=== PATIENT | female | born 1960 | race Caucasian/White ===

== ENCOUNTER 2017-04-21 12:13 | Outpatient (CLI) | payer OTHER ==
[2017-04-21 13:22] LABS: INR 2.8 (0.8-1.2); PT - PROTHROMBIN TIME 30.4 secs (9.9-12.6)
== END 2017-04-21 12:14 | disposition home or self-care (01) ==
LOC: LAB 12:13
PROVIDERS: ATTEND Internal Medicine
DX: Z95.2 Presence of prosthetic heart valve (principal)
CPT/HCPCS: 36415; 85610

== ENCOUNTER 2017-11-10 13:04 | Outpatient (CLI) | payer OTHER ==
[2017-11-10 13:25] LABS: PT - PROTHROMBIN TIME 93.1 secs (9.9-12.6)
[2017-11-10 13:29] LABS: CALCIUM 8.9 mg/dL (8.5-10.3); CREATININE 0.9 mg/dL (0.4-1.0)
== END 2017-11-10 13:05 | disposition home or self-care (01) ==
LOC: LAB 13:04
PROVIDERS: ATTEND Internal Medicine Cardiovascular Disease
DX: Q23.0 Congenital stenosis of aortic valve (principal); I25.5 Ischemic cardiomyopathy; Z95.2 Presence of prosthetic heart valve
CPT/HCPCS: 36415; 80048; 85610

== ENCOUNTER 2017-11-28 10:02 | Outpatient (CLI) | payer OTHER ==
--- NOTE | 2017-12-01 13:06 | Mammography Report ---
Reason: SCREENING MAMMO Procedure Date: 11/28/2017 Accession Number: [id number] / [id number] Procedure: ALIA - Screening Mammo Dig Bilat CPT Code: FULL RESULT: EXAM: Screening Mammo Dig Bilat DATE: 11/28/2017 10:29 AM CLINICAL HISTORY: Routine screening TECHNIQUE: Bilateral CC and MLO views were obtained. COMPARISON: 05/08/2016, 12/24/2013, 10/19/2008 FINDINGS: There are scattered fibroglandular densities. There is no significant interval change. No suspicious masses, clustered microcalcifications, or regions of architectural distortion are identified. Right pacemaker as before. IMPRESSION: Negative examination RECOMMENDATION: Routine annual screening unless otherwise clinically indicated. BIRADS CATEGORY 1: Negative STANDARD QUALIFYING STATEMENTS: 1. This examination was reviewed with the aid of Computer-Aided Detection (CAD). 2. A negative or benign imaging report should not delay biopsy if clinically suspicious findings are present. Consider surgical consultation if warrented. More than 5% of cancers are not identified by imaging. 3. Dense breasts may obscure an underlying neoplasm.
== END 2017-11-28 10:03 | disposition home or self-care (01) ==
LOC: DI 10:02
PROVIDERS: ATTEND Internal Medicine
DX: Z12.31 Encounter for screening mammogram for malignant neoplasm of breast (principal)
CPT/HCPCS: 77067

== ENCOUNTER 2018-12-11 11:42 | Outpatient (CLI) | payer OTHER ==
--- NOTE | 2018-12-11 13:18 | Ultrasound Report ---
Reason: SOFT TISSUE MASS Procedure Date: 12/11/2018 Accession Number: [id number] / [id number] Procedure: US - Abdomen Limited CPT Code: Final Report FULL RESULT: EXAM: ABDOMEN ULTRASOUND LIMITED, RUQ EXAM DATE: 12/11/2018 12:45 PM. CLINICAL HISTORY: Soft tissue mass. COMPARISON: None. TECHNIQUE: Real-time scanning was performed with static images obtained. FINDINGS: Imaging performed at the site of the patient's palpable lump, reportedly at the site of a surgical scar. Corresponding to the site of the patient's lump there is is a fat-containing ventral hernia with herniated contents measuring up to 3.5 cm. The visible neck measures 2.3 cm. It reportedly is partially reducible. No definite herniated bowel. No fluid or fluid collections. IMPRESSION: Fat-containing ventral hernia at the site of the patient's lump. RADIA
== END 2018-12-11 11:43 | disposition home or self-care (01) ==
LOC: DI 11:42
PROVIDERS: ATTEND Physician Assistant
DX: K43.9 Ventral hernia without obstruction or gangrene (principal)
CPT/HCPCS: 76705

== ENCOUNTER 2019-03-29 06:04 | Day surgery (SDC) | payer OTHER ==
--- NOTE | 2019-03-25 15:17 | CONSULTATION NOTE ---
Consultation Report: This patient is schedule for a incisional ventral hernia repair on the 03/29/19. She has some significant cardiac history. Hx of CABG, aortic valve replacement with a prosthetic valve, inferior PA, ischemic cardiomyopathy, CHF, CAD and she has a pacemaker in place. I have read the health records of this patient. I have read her cardiology reports and the reports from her PCP. I have not personally seen the patient. Looking at Dr Chavez's notes, it appears that this patient can walk a few blocks. She can do stairs but gets winded. She has had no c/o chest pain, syncope, or lower extremity edema.Her most recent ECHO that was done on 03/05/2018 shows global hypokinesis of the left ventricle with EF of 46%. This echo shows well seated and well functioning aortic valve. She also appears to be 100% paced by her implanted pacemaker. A myocardial perfusion study from 2018 does show RCA infarct without any du-infarct Ischemic changes(RCA fills with collateral blood flow). She is on a betablocker, coumadin, lasix, losartan and few other medications.
[2019-03-29] MEDS ORDERED: CEFAZOLIN SODIUM IN 0.9 % NACL 2 GM/100 ML BAG IV ONE (06:21)
[2019-03-29] MEDS ORDERED: LIDOCAINE 1%-EPI 1:100000 20 ML MDV ONE (06:52)
[2019-03-29] MEDS ORDERED: BUPIVACAINE 0.5% PF 30 ML VIAL ONE (06:52)
[2019-03-29] MEDS ORDERED: LACTATED RINGERS 1,000 ML IV ONE (06:56)
--- NOTE | 2019-03-29 07:09 | ANESTHESIA ---
Pre-Anesthesia VS, & Labs - Diagnosis Epigastric incisional hernia - Procedure epigastric incisional hernia repair Vital Signs: Temp Pulse Resp BP Pulse Ox 36.7 C 51 L 16 98/73 98 03/29/19 06:38 03/29/19 06:38 03/29/19 06:38 03/29/19 06:38 03/29/19 06:38 Height 5 ft 2 in Weight (kg) 75 kg - NPO >8 hours - Is Patient ?: No Home Medications and Allergies Home Medications: Ambulatory Orders Estradiol [Estrace] 1 applic VG DAILY 03/24/19 Furosemide 40 mg PO DAILY 03/24/19 Losartan Potassium 50 mg PO DAILY 03/24/19 Metoprolol Succinate 25 mg PO DAILY 03/24/19 Sertraline HCl 50 mg PO DAILY 03/24/19 Warfarin Sodium 10 mg PO DAILY 03/24/19 Enoxaparin [Lovenox] 1 BID 03/29/19 Spironolactone 1 DAILY 03/29/19 Estradiol [Estrace] 1 applic VG DAILY 03/24/19 Furosemide 40 mg PO DAILY 03/24/19 Losartan Potassium 50 mg PO DAILY 03/24/19 Metoprolol Succinate 25 mg PO DAILY 03/24/19 Sertraline HCl 50 mg PO DAILY 03/24/19 Warfarin Sodium 10 mg PO DAILY 03/24/19 Enoxaparin [Lovenox] 1 BID 03/29/19 Spironolactone 1 DAILY 03/29/19 Allergies/Adverse Reactions: Allergies Allergy/AdvReac Type Severity Reaction Status Date / Time oxycodone [From Percocet] AdvReac body Verified 03/29/19 06:45 twitching/ jumping Anes History & Medical History - Medical History Cardiovascular: reports: [place] (s/p CABG), Valve disorder Pulmonary: reports: None Gastrointestinal: reports: None Urinary: reports: None Neuro: reports: None Musculoskeletal: reports: None Endocrine/Autoimmune: reports: None Blood Disorders: reports: None Skin: reports: None Smoking Status: Never smoker Psychosocial: reports: Alcohol (2-3 glasses of wine per day) - Surgical History Cardiothoracic: CABG, Valve replacement, Pacemaker Results - EKG Results EKG Comparison: Reviewed EKG - Echo Results Echo Results: Report reviewed Exam General: Alert, Oriented x3, Cooperative, No acute distress Dental: WNL Mouth Openin Fingerbreadth Neck Mobility: Normal Mallampati classification: II Thyromental Distance: greater than 6 cm Respiratory: Lungs clear, Normal breath sounds, No respiratory distress, No accessory muscle use Cardiovascular: Regular rate, Other (loud click) Mental/Cognitive Status: Alert/Oriented X3, Normal for patient Plan Anesthesia Type: General Consent for Procedure(s) Verified and Reviewed: Yes Code Status: Attempt Resuscitation ASA classification: 3-Severe systemic disease Is this case an emergency?: No
[2019-03-29 07:50] LABS: CALCIUM 8.5 mg/dL (8.5-10.3)
[2019-03-29 08:29] LABS: INR 1.1 (0.8-1.2)
[2019-03-29] MEDS ORDERED: ONDANSETRON 4 MG/2 ML VIAL IVP ONE (08:38)
[2019-03-29] MEDS ORDERED: PHENYLEPHRINE 50 MG/5 ML VIAL IV ONE (08:38)
[2019-03-29] MEDS ORDERED: ePHEDrine 50 MG/ML VIAL IVP ONE (08:38)
[2019-03-29] MEDS ORDERED: MIDAZOLAM 2 MG/2 ML VIAL IVP ONE (08:38)
[2019-03-29] MEDS ORDERED: LIDOCAINE-MPF 2% 5 ML VIAL IM ONE (08:38)
[2019-03-29] MEDS ORDERED: DEXAMETHASONE 4 MG/ML VIAL IVP ONE (08:38)
[2019-03-29] MEDS ORDERED: fentaNYL 100 MCG/2 ML VIAL IVP ONE (08:38)
[2019-03-29] MEDS ORDERED: PROPOFOL 200 MG/20 ML VIAL IVP ONE (08:38)
[2019-03-29] MEDS ORDERED: BUPIVACAINE 0.5% PF 30 ML VIAL INFIL ONE ×2 (09:10)
[2019-03-29] MEDS ORDERED: LIDOCAINE 1%-EPI 1:100000 20 ML MDV SUBQ ONE ×2 (09:10)
[2019-03-29] MEDS ORDERED: ACETAMINOPHEN 325 MG TABLET PO PRN (09:24)
[2019-03-29] MEDS ORDERED: IBUPROFEN 600 MG TABLET PO PRN (09:24)
[2019-03-29] MEDS ORDERED: ONDANSETRON 4 MG/2 ML VIAL IVP PRN (09:24)
[2019-03-29] MEDS ORDERED: HYDROcod/ACETAM 5/325 MG TABLET PO PRN (09:26)
[2019-03-29] MEDS ORDERED: LACTATED RINGERS 500 ML IV ONE (09:55)
[2019-03-29 11:13] VITALS: BP 88/51
--- NOTE | 2019-03-29 11:55 | OPERATIVE REPORT ---
Operative Report - General Procedure Date: 03/29/19 Planned Procedure: Incisional Hernia Repair Pre-Op Diagnosis: Epigastric Incisional Hernia Procedure Performed: Incisional hernia repair Post Op Diagnosis: Epigastric Incisional Hernia - Procedure Note Primary Surgeon: Dennis Anesthesia Provider: RUSTY Tanner Anesthesia Technique: General LMA, Local Estimated Blood Loss (mL): 5 Findings: 4 cm epigastric incisional hernia Complications: None apparent - Other Other Information/Narrative: After obtaining informed consent, the patient is brought to the operating room and placed in the supine position on the operating table. Following successful induction of general anesthesia, appropriate padding of all bony prominences, and placement of appropriate monitors the abdomen was prepped and draped in the standard surgical fashion. A timeout was held per scope protocol. All elements of the surgical safety checklist were followed before, during, and after the procedure. We began the procedure by infiltrating a mixture of local anesthetics inferior to the xiphoid process at the site of the hernia. The existing well-healed incision was then reopened in this area and carried down through the skin and subcutaneous tissue to reveal a well-defined hernia defect of approximately 4 cm.Fascia were carefully dissected free from the underlying hernia sac and the hernia sac itself placed back into the abdominal cavity. The hernia sac contained preperitoneal fat and peritoneum only. The wound was then checked for hemostasis. We elected to repair the defect using a 6 cm ventral Micah patch. This was dipped in Ancef containing solution and deployed into the defect per fender mechanic apprentice's directions. The anterior leaflets were then trimmed and sewn to the fascia again per fender mechanic apprentice's directions. The superior portion of the anterior surface of the patch was then tacked to the xiphoid process to prevent shifting during the initial stages of healing. The wound was checked for hemostasis and irrigated with warm saline solution containing Ancef. It was then closed in 2 layers with Vicryl and Monocryl suture and Dermabond applied to the skin. All sponge, needle, and instrument counts were correct at the conclusion of the case. The patient was allowed awaken from anesthesia without difficulty and taken to the postanesthesia care unit in good condition.
== END 2019-03-29 06:05 | disposition home or self-care (01) ==
LOC: SDS 06:04
PROVIDERS: ATTEND Surgery
PROC: 0WUF0JZ Supplement Abdominal Wall with Synthetic Substitute, Open Approach (ICD-10-PCS; principal; 2019-03-29 07:30)
DX: K43.2 Incisional hernia without obstruction or gangrene (principal); I50.9 Heart failure, unspecified; I49.9 Cardiac arrhythmia, unspecified; G40.909 Epilepsy, unspecified, not intractable, without status epilepticus; Z79.01 Long term (current) use of anticoagulants; I25.2 Old myocardial infarction; Z95.1 Presence of aortocoronary bypass graft; Z95.2 Presence of prosthetic heart valve; Z95.0 Presence of cardiac pacemaker
CPT/HCPCS: 36415; 49560; 49568; 80048; 85610; A9270; C1781; J0690; J7120

== ENCOUNTER 2020-06-23 12:01 | Outpatient (CLI) | payer OTHER ==
[2020-06-23 12:33] LABS: CALCIUM 9.2 mg/dL (8.5-10.3); CREATININE 0.9 mg/dL (0.4-1.0); POTASSIUM 4.1 mmol/L (3.5-5.0)
== END 2020-06-23 12:02 | disposition home or self-care (01) ==
LOC: LAB 12:01
PROVIDERS: ATTEND Internal Medicine
DX: Q23.0 Congenital stenosis of aortic valve (principal); I25.5 Ischemic cardiomyopathy; Z79.01 Long term (current) use of anticoagulants; I50.9 Heart failure, unspecified
CPT/HCPCS: 36415; 80048; 85610

== ENCOUNTER 2020-07-03 13:22 | Outpatient (CLI) | payer OTHER | END 2020-07-03 13:23 | disposition home or self-care (01) | LOC: LAB 13:22 | PROVIDERS: ATTEND Internal Medicine | DX: Z79.01 Long term (current) use of anticoagulants (principal); I50.9 Heart failure, unspecified | CPT/HCPCS: 36416; 85610 ==

== ENCOUNTER 2020-11-27 12:52 | Outpatient (CLI) | payer OTHER ==
--- NOTE | 2020-11-27 13:48 | XRAY Report ---
PROCEDURE: Chest 2 View X-Ray INDICATIONS: DIAPHRAGMATIC HERNIA,OTHER FORMS OF DYSPNEA,DYSPHA TECHNIQUE: 2 view(s) of the chest. COMPARISON: None. FINDINGS: Surgical changes and devices: Right chest wall pacemaker leads are in the region of right atrium and right ventricle. Mediastinal anatomy wires and prosthetic heart valve are seen. Lungs and pleura: No pleural effusions or pneumothorax. Lungs are clear. Mediastinum: Mediastinal contours are normal. Heart size is markedly enlarged Bones and chest wall: No suspicious bony abnormalities. Soft tissues appear unremarkable. IMPRESSION: No acute cardiopulmonary pathology. Reviewed by: Bolivar Nolen MD on 11/27/2020 1:47 PM PDT Approved by: Bolivar Nolen MD on 11/27/2020 1:47 PM PDT Station ID: [id number]
== END 2020-11-27 12:53 | disposition home or self-care (01) ==
LOC: DI 12:52
DX: K44.9 Diaphragmatic hernia without obstruction or gangrene (principal); R06.09 Other forms of dyspnea; R13.10 Dysphagia, unspecified; Q23.0 Congenital stenosis of aortic valve
CPT/HCPCS: 36415; 80069

== ENCOUNTER 2020-11-27 13:10 | Outpatient (CLI) | payer OTHER ==
[2020-11-27 13:49] LABS: ALBUMIN 4.5 g/dL (3.2-5.5); CALCIUM 8.9 mg/dL (8.5-10.3); CREATININE 1.2 mg/dL (0.4-1.0); PHOSPHORUS 4.9 mg/dL (2.5-4.6); POTASSIUM 4.3 mmol/L (3.5-5.0)
== END 2020-11-27 13:11 | disposition home or self-care (01) ==
LOC: LAB 13:10
PROVIDERS: ATTEND Internal Medicine Cardiovascular Disease
DX: Q23.0 Congenital stenosis of aortic valve (principal)
CPT/HCPCS: 36415; 80069

== ENCOUNTER 2021-04-06 16:07 | Emergency (ER) | payer OTHER ==
[2021-04-06 17:16] LABS: EOSINOPHILS # (AUTO) 0.2 10^3/uL (0.0-0.7); EOSINOPHILS % (AUTO) 4.6 %; HGB - HEMOGLOBIN 12.2 g/dL (12.0-16.0); LYMPHOCYTES # (AUTO) 0.8 10^3/uL (1.5-3.5); LYMPHOCYTES % (AUTO) 19.4 %; MEAN CORPUSCULAR HEMOGLOBIN 33.3 pg (27.0-31.0); MEAN CORPUSCULAR VOLUME 101.1 fL (81.0-99.0); MEAN PLATELET VOLUME 10.5 fL (7.9-10.8); MONOCYTES # (AUTO) 0.8 10^3/uL (0.0-1.0); MONOCYTES % (AUTO) 18.4 %; NEUTROPHILS # (AUTO) 2.3 10^3/uL (1.5-6.6); NEUTROPHILS % (AUTO) 56.4 %; PLT - PLATELET COUNT 168 10^3/uL (130-450); RED BLOOD COUNT 3.66 10^6/uL (4.20-5.40); RED CELL DISTRIBUTION WIDTH 15.7 % (12.0-15.0); WHITE BLOOD COUNT 4.1 x10^3/uL (4.8-10.8)
--- NOTE | 2021-04-06 17:17 | ED Physician Documentation ---
History of Present Illness - Stated complaint Stated Complaint: SOA/BILAT LAG SWELL/PX - Chief complaint Chief Complaint: Cardiac - History obtained from History obtained from: Patient - History of Present Illness Timing: How many weeks ago (several weeks) Pain level max: 0 Pain level now: 0 - Additonal information Additional information: Patient is a 60-year-old female who presents to the emergency department complaining of swelling from her toes to her mid chest. Has worsened over the past few weeks. Has a history of congestive heart failure, aortic valve replacement, pacemaker. Denies any history of liver issues. She states that she was a heavy drinker for many years, quit drinking 3 weeks ago. Does not have any history of kidney issues. No fever. No chills. No cough. She is on Lasix and spironolactone, states that she continues to feel more and more swollen. She is followed by cardiology at the [facility] in [place]. Review of Systems Ten Systems: 10 systems reviewed and negative Constitutional: denies: Fever, Chills Ears: denies: Ear pain Nose: denies: Rhinorrhea / runny nose, Congestion Throat: denies: Sore throat Cardiac: denies: Chest pain / pressure, Palpitations GI: denies: Nausea, Vomiting, Diarrhea PD PAST MEDICAL HISTORY - Past Medical History Past Medical History: Yes Cardiovascular: [place] (s/p CABG), Valve disorder Respiratory: None Neuro: None Endocrine/Autoimmune: None GI: None : None HEENT: Chronic vision loss Psych: Depression Musculoskeletal: None Derm: None - Past Surgical History Past Surgical History: Yes Cardiovascular: CABG, Valve replacement, Pacemaker - Present Medications Home Medications: Ambulatory Orders Medication Instructions Recorded Confirmed Estradiol [Estrace] 1 applic VG DAILY 03/24/19 03/29/19 Furosemide 40 mg PO DAILY 03/24/19 03/29/19 Losartan Potassium 50 mg PO DAILY 03/24/19 03/29/19 Metoprolol Succinate 25 mg PO DAILY 03/24/19 03/29/19 Sertraline HCl 50 mg PO DAILY 03/24/19 03/29/19 Warfarin Sodium 10 mg PO DAILY 03/24/19 03/29/19 Enoxaparin [Lovenox] 1 BID 03/29/19 Hydrocodone/Acetaminophen [Crawford 1 each PO Q6H PRN #14 tablet 03/29/19 5-325 Tablet] Spironolactone 1 DAILY 03/29/19 - Allergies Allergies/Adverse Reactions: Allergies Allergy/AdvReac Type Severity Reaction Status Date / Time oxycodone [From Percocet] AdvReac body Verified 04/06/21 16:16 twitching/ jumping - Social History Smoking Status: Never smoker PD ED PE NORMAL - Vitals Vital signs reviewed: Yes - General General: Alert and oriented X 3, No acute distress - HEENT HEENT: PERRL - Neck Neck: Supple, no meningeal sign - Cardiac Cardiac: RRR, Strong equal pulses - Respiratory Respiratory: No respiratory distress, Clear bilaterally - Abdomen Abdomen: Soft, Non tender, Non distended - Derm Derm: Warm and dry - Extremities Extremities: Other (B LE edema) - Neuro Neuro: Alert and oriented X 3 - Psych Psych: Normal mood, Normal affect Results - Vitals Vitals: Vital Signs - 24 hr 04/06/21 04/06/21 04/06/21 16:11 16:39 18:16 Temperature 36.6 C Heart Rate 53 L 105 H 55 L Respiratory 24 21 18 Rate Blood Pressure 97/56 L 84/56 L O2 Saturation 100 100 99 04/06/21 20:00 Temperature 36.5 C Heart Rate 52 L Respiratory 18 Rate Blood Pressure 88/52 L O2 Saturation 100 Oxygen O2 Source Room air - EKG (time done) 1718 Rate: Rate (enter#) (50) Rhythm: Paced - Labs Labs: Laboratory Tests 04/06/21 04/06/21 04/06/21 17:09 17:09 17:09 WBC 4.1 L RBC 3.66 L Hgb 12.2 Hct 37.0 MCV 101.1 H MCH 33.3 H MCHC 33.0 RDW 15.7 H Plt Count 168 MPV 10.5 Neut # (Auto) 2.3 Lymph # (Auto) 0.8 L [place] # (Auto) 0.8 Eos # (Auto) 0.2 Baso # (Auto) 0.0 Absolute Nucleated RBC 0.00 Nucleated RBC % 0.0 PT 28.7 H INR 2.6 H Sodium 132 L Potassium 5.2 H Chloride 107 Carbon Dioxide 15 L Anion Gap 10.0 BUN 71 H Creatinine 4.0 H Estimated GFR (MDRD) 11 L Glucose 99 Calcium 8.8 Total Bilirubin 2.0 H AST 19 ALT < 10 L Alkaline Phosphatase 81 Ammonia Troponin I High Sens B-Natriuretic Peptide Total Protein 7.4 Albumin 3.9 Globulin 3.5 Albumin/Globulin Ratio 1.1 Lipase 92 H Urine Color Urine Clarity Urine pH Ur Specific [place] Urine Protein Urine Glucose (UA) Urine Ketones Urine Occult Blood Urine Nitrite Urine Bilirubin Urine Urobilinogen Ur Leukocyte Esterase Urine RBC Urine WBC Ur Squamous Epith Cells Urine Bacteria Urine Casts Ur Microscopic Review Urine Culture Comments Urine Sodium Nasal Adenovirus (PCR) Nasal B. parapertussis DNA (PCR) Nasal Coronavir 229E PCR Nasal Coronavir HKU1 PCR Nasal Coronavir NL63 PCR Nasal Coronavir OC43 PCR Nasal Enterovir/Rhinovir PCR Nasal Influenza B PCR Nasal Influenza A PCR Nasal Parainfluen 1 PCR Nasal Parainfluen 2 PCR Nasal Parainfluen 3 PCR Nasal Parainfluen 4 PCR Nasal RSV (PCR) Nasal B.pertussis DNA PCR Nasal C.pneumoniae (PCR) [place] Human Metapneumo PCR Nasal M.pneumoniae (PCR) Nasal SARS-CoV-2 (PCR) 04/06/21 04/06/21 04/06/21 17:09 17:09 17:22 WBC RBC Hgb Hct MCV MCH MCHC RDW Plt Count MPV Neut # (Auto) Lymph # (Auto) [place] # (Auto) Eos # (Auto) Baso # (Auto) Absolute Nucleated RBC Nucleated RBC % PT INR Sodium Potassium Chloride Carbon Dioxide Anion Gap BUN Creatinine Estimated GFR (MDRD) Glucose Calcium Total Bilirubin AST ALT Alkaline Phosphatase Ammonia Troponin I High Sens 40.2 H* B-Natriuretic Peptide 2129 H Total Protein Albumin Globulin Albumin/Globulin Ratio Lipase Urine Color DARK YELLOW Urine Clarity CLEAR Urine pH 5.5 Ur Specific [place] 1.025 Urine Protein 30 H Urine Glucose (UA) NEGATIVE Urine Ketones NEGATIVE Urine Occult Blood TRACE-INTA Urine Nitrite NEGATIVE Urine Bilirubin NEGATIVE Urine Urobilinogen 0.2 (NORMAL) Ur Leukocyte Esterase TRACE H Urine RBC 6-10 H Urine WBC 11-25 H Ur Squamous Epith Cells FEW Squamous Urine Bacteria Few Urine Casts 11-25 Hyaline Casts Ur Microscopic Review INDICATED Urine Culture Comments INDICATED Urine Sodium Nasal Adenovirus (PCR) Nasal B. parapertussis DNA (PCR) Nasal Coronavir 229E PCR Nasal Coronavir HKU1 PCR Nasal Coronavir NL63 PCR Nasal Coronavir OC43 PCR Nasal Enterovir/Rhinovir PCR Nasal Influenza B PCR Nasal Influenza A PCR Nasal Parainfluen 1 PCR Nasal Parainfluen 2 PCR Nasal Parainfluen 3 PCR Nasal Parainfluen 4 PCR Nasal RSV (PCR) Nasal B.pertussis DNA PCR Nasal C.pneumoniae (PCR) [place] Human Metapneumo PCR Nasal M.pneumoniae (PCR) Nasal SARS-CoV-2 (PCR) 04/06/21 04/06/21 04/06/21 17:22 17:28 18:25 WBC RBC Hgb Hct MCV MCH MCHC RDW Plt Count MPV Neut # (Auto) Lymph # (Auto) [place] # (Auto) Eos # (Auto) Baso # (Auto) Absolute Nucleated RBC Nucleated RBC % PT INR Sodium Potassium Chloride Carbon Dioxide Anion Gap BUN Creatinine Estimated GFR (MDRD) Glucose Calcium Total Bilirubin AST ALT Alkaline Phosphatase Ammonia 15.5 Troponin I High Sens B-Natriuretic Peptide Total Protein Albumin Globulin Albumin/Globulin Ratio Lipase Urine Color Urine Clarity Urine pH Ur Specific [place] Urine Protein Urine Glucose (UA) Urine Ketones Urine Occult Blood Urine Nitrite Urine Bilirubin Urine Urobilinogen Ur Leukocyte Esterase Urine RBC Urine WBC Ur Squamous Epith Cells Urine Bacteria Urine Casts Ur Microscopic Review Urine Culture Comments Urine Sodium < 12.0 Nasal Adenovirus (PCR) NOT DETECTED Nasal B. parapertussis DNA (PCR) NOT DETECTED Nasal Coronavir 229E PCR NOT DETECTED Nasal Coronavir HKU1 PCR NOT DETECTED Nasal Coronavir NL63 PCR NOT DETECTED Nasal Coronavir OC43 PCR NOT DETECTED Nasal Enterovir/Rhinovir PCR NOT DETECTED Nasal Influenza B PCR NOT DETECTED Nasal Influenza A PCR NOT DETECTED Nasal Parainfluen 1 PCR NOT DETECTED Nasal Parainfluen 2 PCR NOT DETECTED Nasal Parainfluen 3 PCR NOT DETECTED Nasal Parainfluen 4 PCR NOT DETECTED Nasal RSV (PCR) NOT DETECTED Nasal B.pertussis DNA PCR NOT DETECTED Nasal C.pneumoniae (PCR) NOT DETECTED [place] Human Metapneumo PCR NOT DETECTED Nasal M.pneumoniae (PCR) NOT DETECTED Nasal SARS-CoV-2 (PCR) NOT DETECTED - Rads (name of study) cxr Radiology: Final report received, EMP read contemporaneously, See rad report (Marked cardiomegaly. No pulmonary edema) PD MEDICAL DECISION MAKING - ED course Complexity details: reviewed results, re-evaluated patient, considered differential, d/w patient ED course: 60-year-old female with multiple cardiac problems presents with generalized anasarca and new onset ascites on ultrasound of the abdomen. She also has acute renal insufficiency. She states that she has never had creatinine issues before. She does not know her baseline creatinine or echo status. No prior records here. Given the new onset renal failure, the new onset ascites, marked cardiomegaly on chest x-ray, I feel that this patient will require transfer for higher level of care. We do not have echo available here this weekend. We have no cardiology, nephrology or GI if she requires a services. Attempted to contact [facility] in [place], no beds available. No beds available at the [facility]. I was able to speak with hepatology, Dr. Tadeo, She recommends albumin infusion. We will continue to search for a bed. Discussed with Dr. Guerra, cardiology at [facility] in [place], recommends diuresis. Patient was given Lasix IV. Discussed with Dr. Cornejo, hospitalist at [facility] who graciously accepts in transfer. COBRA forms completed. This document was made in part using voice recognition software. While efforts are made to proofread this document, sound alike and grammatical errors may occur. Departure - Departure Disposition: 02 Transfer Acute Care Hosp Clinical Impression: Uremia Congestive heart failure Qualifiers: Heart failure type: unspecified Heart failure chronicity: acute on chronic Qualified Code(s): I50.9 - Heart failure, unspecified Acute renal failure Qualifiers: Acute renal failure type: unspecified Qualified Code(s): N17.9 - Acute kidney failure, unspecified Ascites Qualifiers: Ascites type: other type Qualified Code(s): R18.8 - Other ascites Condition: Stable
[2021-04-06 17:29] LABS: INR 2.6 (0.8-1.2); PT - PROTHROMBIN TIME 28.7 secs (9.9-12.6)
[2021-04-06 17:36] LABS: ALBUMIN 3.9 g/dL (3.2-5.5); ALBUMIN/GLOBULIN RATIO 1.1 (1.0-2.2); ALKALINE PHOSPHATASE 81 IU/L (42-121); ALT ALANINE AMINOTRANSFERASE < 10 IU/L (10-60); AST ASPARTATE AMINOTRANSFERASE 19 IU/L (10-42); BUN - BLOOD UREA NITROGEN 71 mg/dL (6-20); CALCIUM 8.8 mg/dL (8.5-10.3); CARBON DIOXIDE - CO2 15 mmol/L (21-32); CHLORIDE 107 mmol/L (101-111); GFR - MDRD 11 (>89); GLUCOSE 99 mg/dL (70-100); LIPASE 92 U/L (22-51); POTASSIUM 5.2 mmol/L (3.5-5.0); SODIUM 132 mmol/L (135-145); TOTAL PROTEIN 7.4 g/dL (6.7-8.2)
--- NOTE | 2021-04-06 18:16 | XRAY Report ---
PROCEDURE: Chest 1 View X-Ray INDICATIONS: dyspnea TECHNIQUE: One view of the chest was acquired. COMPARISON: November 27, 2020 FINDINGS: SUPPORT DEVICES: Redemonstrated sternotomy wire, valve prosthesis, and right cardiac device. LUNGS/PLEURA: No focal consolidation, pleural effusion or space-occupying pneumothorax. MEDIASTINUM: Marked enlargement of the cardiac silhouette, unchanged. BONES/SOFT TISSUES: No acute abnormality. IMPRESSION: 1.No acute cardiopulmonary abnormality. Reviewed by: Anthony Mcgowan MD on 04/06/2021 6:14 PM PST Approved by: Anthony Mcgowan MD on 04/06/2021 6:14 PM PST Station ID: [id number]
[2021-04-06] MEDS ORDERED: ALBUMIN 25% 12.5 GM/50 ML VIAL IV STA (19:19)
[2021-04-06 19:28] LABS: B. PARAPERTUSSIS- RESP PCR PAN NOT DETECTED; B. PERTUSSIS- RESP PCR PANEL NOT DETECTED; C. PNEUMONIAE- RESP PCR PANEL NOT DETECTED; CORONAVIRUS 229E-RESP PCR NOT DETECTED; CORONAVIRUS HKU1-RESP PCR NOT DETECTED; CORONAVIRUS NL63-RESP PCR NOT DETECTED; CORONAVIRUS OC43-RESP PCR NOT DETECTED; HUMAN METAPNEUMOVIRUS NOT DETECTED; INFLUENZA A- RESP PCR PANEL NOT DETECTED; INFLUENZA B - RESP PCR PANEL NOT DETECTED; M. PNEUMONIAE- RESP PCR PANEL NOT DETECTED; PARAINFLUENZA VIRUS 1 NOT DETECTED; PARAINFLUENZA VIRUS 2 NOT DETECTED; PARAINFLUENZA VIRUS 3 NOT DETECTED; PARAINFLUENZA VIRUS 4 NOT DETECTED; RHINOVIRUS/ENTEROVIRUS NOT DETECTED; RSV- RESP PCR PANEL NOT DETECTED; SARS-CoV-2 -RESP PCR PANEL NOT DETECTED
[2021-04-06] MEDS ORDERED: SODIUM CHLORIDE 0.9% 500 ML IV STA (19:33)
[2021-04-06] MEDS ORDERED: SODIUM CHLORIDE 0.9% 1,000 ML IV STA (19:34)
[2021-04-06 19:43] LABS: GLUCOSE, URINE (UA) NEGATIVE (NEGATIVE); KETONES,URINE (UA) NEGATIVE (NEGATIVE); LEUKOCYTE ESTERASE, URINE TRACE (NEGATIVE); NITRITE,URINE NEGATIVE (NEGATIVE); OCCULT BLOOD,URINE TRACE-INTA (NEGATIVE); PH,URINE 5.5 PH (5.0-7.5); PROTEIN,URINE 30 mg/dL (NEGATIVE); UROBILINOGEN,URINE 0.2 (NORMAL) E.U./dL (NORMAL)
[2021-04-06 19:46] LABS: BILIRUBIN,URINE NEGATIVE (NEGATIVE); CLARITY,URINE CLEAR (CLEAR); ICTOTEST,URINE NEGATIVE
[2021-04-06 19:51] LABS: SQUAMOUS EPITHELIAL CELL,UR FEW Squamous (<= Few)
[2021-04-06 19:52] LABS: BACTERIA,URINE Few /HPF (None Seen); CASTS, URINE 11-25 Hyaline Casts /LPF
[2021-04-06] MEDS ORDERED: FUROSEMIDE 40 MG/4 ML VIAL IVP STA (20:02)
[2021-04-06 21:56] VITALS: BP 92/70
== END 2021-04-06 22:20 | disposition short-term general hospital (02) ==
LOC: ED 16:07
DX: N17.9 Acute kidney failure, unspecified (principal); I50.9 Heart failure, unspecified; R18.8 Other ascites; Z95.1 Presence of aortocoronary bypass graft; Z95.2 Presence of prosthetic heart valve; Z95.0 Presence of cardiac pacemaker; Z20.822 Contact with and (suspected) exposure to COVID-19
CPT/HCPCS: 0202U; 36415; 71045; 80053; 81001; 82140; 83690; 83880; 84300; 84484; 85025; 85610; 87086; 93005; 96365; 96375; 99284; 99285; P9047; 81003